=== PATIENT | male | born 1935 | race African-American/Black ===

== ENCOUNTER 2022-03-23 21:24 | Observation (INO) ==
[2022-03-23] MEDS ORDERED: MORPHINE 2 MG/1 ML SYRINGE IV ONE (22:43)
[2022-03-23] MEDS ORDERED: SODIUM CHLORIDE 0.9% 500 ML IV STA (22:43)
[2022-03-23] MEDS ORDERED: ONDANSETRON 4 MG/2 ML VIAL IV ONE (22:43)
[2022-03-23 23:14] LABS: Basophils % 0.2 % (0.0-0.8); Eosinophils % 0.2 % (0.00-10.9); Hematocrit 41.1 VOL% (42.0-52.0); Immature Granulocytes % 0.4 %; Immature Granulocytes Absolute 0.05 #; Lymphocytes # 1.8 10*3/uL (1.4-4.0); Lymphocytes % 15.8 % (21.2-54.2); Mean Corpuscular HGB Conc 34.1 GM/DL (32-36); Mean Corpuscular Volume 86.2 FL (87-102); Mean Platelet Volume 11.2 FL (9.6-12.0); Monocytes # 0.7 10*3/uL (0.11-0.8); Monocytes % 5.8 % (1.7-12.7); Neutrophils % 77.6 % (38.7-73.9); Platelet Count 177 T/CUMM (130-400); Red Blood Count 4.77 MC/CUMM (3.8-5.5); Red Cell Distribution Width 14.9 % (9.3-17.3); White Blood Count 11.5 T/CUMM (4-12)
[2022-03-23 23:33] LABS: Albumin 3.4 G/DL (3.4-5.0); Bilirubin,Total 0.7 MG/DL (0.20-1.00); Calcium 8.7 MG/DL (8.5-10.1); Osmolality,Calculated 280.7 MOS/KG (273-304); Potassium 4.1 MMOL/L (3.5-5.1); Total Protein 6.5 G/DL (6.4-8.2)
[2022-03-23 23:41] LABS: Lymphocytes 13 % (20-55); Total Cells Counted 100
[2022-03-23 23:42] LABS: Platelet Estimate Adequate
[2022-03-24 00:09] LABS: INR 1.1; PT Patient Result 11.6 SECS (10.1-12.1)
[2022-03-24 00:50] LABS: Bacteria,Urine Occasional /HPF (Few); Mucus,Urine Occasional /LPF (Occasional); RBC,Urine 144 /HPF (0-4); Squamous Epithelial Cell,Urine Occasional /HPF (0-10)
[2022-03-24 00:51] LABS: Glucose,Urine (UA) Negative (Negative); Ketones,Urine Negative (Negative); Protein,Urine 30 mg/dL (Negative); Urine Appearance Slightly Cloudy (Clear); Urine Color Yellow (Yellow); Urine Specific Gravity 1.025 (1.001-1.035)
[2022-03-24 00:52] LABS: Bilirubin,Urine Negative (Negative); Blood, Urine Large mg/dL (Negative); Nitrite,Urine Negative (Negative); Urine Urobilinogen 0.2 eU/dL (<2.0)
[2022-03-24] MEDS ORDERED: cefTRIAXone 1,000 MG in SODIUM CHLORIDE 0.9% 100 ML IV STA (02:37)
[2022-03-24] MEDS ORDERED: MORPHINE 2 MG/1 ML SYRINGE IV PRN (03:08)
[2022-03-24] MEDS ORDERED: BISACODYL 5 MG TABLET PO PRN (03:08)
[2022-03-24] MEDS ORDERED: hydrALAZINE 20 MG/1 ML VIAL IV PRN (03:08)
[2022-03-24] MEDS ORDERED: DOCUSATE SODIUM 100 MG CAPSULE PO PRN (03:08)
[2022-03-24] MEDS ORDERED: ACETAMINOPHEN 325 MG TABLET PO PRN (03:08)
[2022-03-24] MEDS ORDERED: ASPIRIN 325 MG TABLET PO STA (03:28)
[2022-03-24] MEDS ORDERED: LACTATED RINGERS 1,000 ML IV SCH (03:30)
[2022-03-24] MEDS ORDERED: predniSONE 5 MG TABLET PO PRN (03:44)
[2022-03-24] MEDS: PANTOPRAZOLE 40 MG TABLET PO SCH (08:14)
[2022-03-24] MEDS: METOPROLOL SUCCINATE XL 50 MG TABLET PO SCH (08:14)
[2022-03-24] MEDS: FOLIC ACID 1 MG TABLET PO SCH (08:14)
[2022-03-24] MEDS: EZETIMIBE 10 MG TABLET PO SCH (08:14)
[2022-03-24] MEDS: LISINOPRIL/HCTZ 20-12.5 MG TABLET PO SCH ×2 (08:48→20:22)
[2022-03-24] MEDS: DOXYCYCLINE HYCLATE 100 MG CAPSULE PO SCH ×2 (08:48→16:11)
[2022-03-24] MEDS ORDERED: SODIUM PHOSPHATE ENEMA 133 ML BOTTLE RECTAL PRN (11:23)
[2022-03-24] MEDS ORDERED: SODIUM PHOSPHATE ENEMA 133 ML BOTTLE RECTAL ONE (12:00)
[2022-03-24] MEDS: LACTULOSE 20 GM/30 ML UDCUP PO SCH ×3 (12:49→23:14)
[2022-03-24] MEDS: KETOROLAC 15 MG/1 ML VIAL IV PRN (20:22)
[2022-03-24] MEDS: DOCUSATE SODIUM 100 MG CAPSULE PO SCH (20:22)
[2022-03-24] MEDS ORDERED: ENOXAPARIN 40 MG/0.4 ML SYRINGE SUBCUT SCH (21:00)
[2022-03-25] MEDS ORDERED: cefTRIAXone 1,000 MG in SODIUM CHLORIDE 0.9% 100 ML IV SCH (03:00)
[2022-03-25] MEDS: KETOROLAC 15 MG/1 ML VIAL IV PRN (04:11)
[2022-03-25] MEDS: LACTULOSE 20 GM/30 ML UDCUP PO SCH ×2 (05:16→11:00)
[2022-03-25 05:52] LABS: Basophils % 0.2 % (0.0-0.8); Eosinophils # 0.1 10*3/uL (0.0-0.87); Eosinophils % 0.8 % (0.00-10.9); Hemoglobin 12.5 GM/DL (14.0-18.0); Immature Granulocytes % 0.5 %; Immature Granulocytes Absolute 0.04 #; Lymphocytes # 1.6 10*3/uL (1.4-4.0); Lymphocytes % 18.7 % (21.2-54.2); Mean Corpuscular HGB Conc 33.8 GM/DL (32-36); Mean Corpuscular Volume 88.1 FL (87-102); Mean Platelet Volume 11.9 FL (9.6-12.0); Monocytes # 0.7 10*3/uL (0.11-0.8); Neutrophils % 71.8 % (38.7-73.9); Platelet Count 139 T/CUMM (130-400); Red Cell Distribution Width 15.2 % (9.3-17.3); White Blood Count 8.3 T/CUMM (4-12)
[2022-03-25] MEDS: LISINOPRIL/HCTZ 20-12.5 MG TABLET PO SCH (08:28)
[2022-03-25] MEDS: FOLIC ACID 1 MG TABLET PO SCH (08:28)
[2022-03-25] MEDS: PANTOPRAZOLE 40 MG TABLET PO SCH (08:28)
[2022-03-25] MEDS: EZETIMIBE 10 MG TABLET PO SCH (08:28)
[2022-03-25] MEDS: METOPROLOL SUCCINATE XL 50 MG TABLET PO SCH (08:28)
[2022-03-25] MEDS: DOCUSATE SODIUM 100 MG CAPSULE PO SCH (08:28)
[2022-03-25] MEDS: DOXYCYCLINE HYCLATE 100 MG CAPSULE PO SCH (08:28)
[2022-03-25] MEDS ORDERED: DAPAGLIFLOZIN 10 MG TABLET PO SCH (09:30)
[2022-03-25] MEDS ORDERED: SPIRONOLACTONE 25 MG TABLET PO SCH (10:00)
[2022-03-25 10:09] LABS: Albumin 2.8 G/DL (3.4-5.0); Bilirubin,Total 0.8 MG/DL (0.20-1.00); Calcium 8.5 MG/DL (8.5-10.1); Osmolality,Calculated 278.5 MOS/KG (273-304); Potassium 3.9 MMOL/L (3.5-5.1); Total Protein 5.8 G/DL (6.4-8.2)
[2022-03-25] MEDS ORDERED: amLODIPine 2.5 MG TABLET PO SCH (10:30)
[2022-03-25 10:35] LABS: Calcium 8.8 MG/DL (8.5-10.1); Osmolality,Calculated 278.5 MOS/KG (273-304)
[2022-03-25 12:02] VITALS: BP 143/86
[2022-03-25] MEDS ORDERED: VALSARTAN 80 MG TABLET PO SCH (21:00)
== END 2022-03-25 14:40 | disposition home or self-care (01) ==
LOC: N.EDINP 21:24 → N.ED 21:24 → SUATTDRO 03-24 03:08 → N.3E 03-24 04:14
PROVIDERS: ADMIT Internal Medicine; ATTEND Family Medicine